=== PATIENT | female | born 1985 | race African-American/Black ===

== ENCOUNTER 2017-09-17 17:40 | Emergency (ER) | payer OTHER ==
[~2017-09-17 17:40] MED LIST: ULTRAM 50MG TAB50 MG PO; ZOFRAN ODT4 MG PO
[2017-09-17] MEDS ORDERED: MUCINEX D ER 11 EACH PO (17:51)
[2017-09-17] MEDS ORDERED: ZOFRAN ODT4 MG PO (17:51)
== END 2017-09-17 18:54 | disposition home or self-care (01) ==
LOC: ER 17:40
DX: J32.9 Chronic sinusitis, unspecified (principal)

== ENCOUNTER 2017-10-15 15:36 | Emergency (ER) | payer OTHER ==
[~2017-10-15] VITALS: Ht 154.9 cm; Wt 56.7 kg
[~2017-10-15 15:36] MED LIST changes: +MUCINEX D ER 11 EACH PO
[2017-10-15 16:12] LABS: URINE BILIRUBIN NEGATIVE (Negative); URINE BLOOD NEGATIVE (Negative); URINE CLARITY CLEAR; URINE COLOR YELLOW; URINE GLUCOSE-RANDOM* NEGATIVE (Negative); URINE KETONES NEGATIVE (Negative); URINE LEUKOCYTES NEGATIVE (Negative); URINE NITRITE NEGATIVE (Negative); URINE PROTEIN (DIPSTICK) NEGATIVE (Negative); URINE SPECIFIC GRAVITY 1.025 (1.005-1.035); URINE UROBILINOGEN 0.2 E.U./dl (0.2-1.0)
[2017-10-15 16:23] LABS: HEMOGLOBIN 9.2 gm/dL (12.0-15.0); RDW 17.5 % (10.5-14.5)
[2017-10-15 16:25] LABS: HEMATOCRIT 29.6 % (37.0-47.0); MCH 21.2 pg (26.0-34.0); MCHC 31.2 g/dL (28.0-37.0); MCV 67.8 fL (80.0-100.0); PLATELET COUNT 198 thou/uL (150-400); RBC 4.36 mil/uL (4.20-5.00)
[2017-10-15 16:31] LABS: CREATININE 0.6 mg/dL (0.6-1.0); POTASSIUM 3.4 mmol/L (3.5-5.1)
[2017-10-15 16:37] LABS: DIRECT BILIRUBIN 0.1 mg/dL (<0.1-0.3); TOTAL BILIRUBIN 0.4 mg/dL (<0.1-1.0)
[2017-10-15 17:05] LABS: MYELOCYTES 2 %
[2017-10-15 17:06] LABS: ANISOCYTOSIS 3+; POLYCHROMASIA SLIGHT
[2017-10-15 17:07] LABS: POIKILOCYTOSIS 1+; SCHISTOCYTES OCCASIONAL
[2017-10-15] MEDS ORDERED: NORCO 5-325 TA1 EACH PO (17:19)
[2017-10-15 17:58] VITALS: BP 106/56
== END 2017-10-15 18:07 | disposition home or self-care (01) ==
LOC: ER 15:36
PROVIDERS: Emergency Medicine
DX: N83.202 Unspecified ovarian cyst, left side (principal)

== ENCOUNTER 2018-09-27 20:08 | Emergency (ER) | payer OTHER ==
[~2018-09-27] VITALS: Ht 154.9 cm; Wt 54.4 kg
[~2018-09-27 20:08] MED LIST changes: +NORCO 5-325 TA1 EACH PO
[2018-09-27] MEDS ORDERED: LEXAPRO 10 MG T10 M2 PO (20:12)
[2018-09-27 20:26] LABS: URINE BILIRUBIN NEGATIVE (Negative); URINE BLOOD NEGATIVE (Negative); URINE CLARITY CLEAR; URINE COLOR YELLOW; URINE GLUCOSE-RANDOM* NEGATIVE (Negative); URINE KETONES NEGATIVE (Negative); URINE NITRITE-REFLEX NEGATIVE (Negative); URINE PROTEIN (DIPSTICK) NEGATIVE (Negative)
[2018-09-27 20:27] LABS: URINE LEUKOCYTES-REFLEX 3+ (Negative)
[2018-09-27 20:35] LABS: BACTERIA-REFLEX >30 Many /HPF (None Seen); CASTS None Seen /LPF (None Seen); CRYSTALS None Seen /LPF (None Seen); SQUAMOUS 4-10 Moderate /LPF (0-3); URINE WBC-REFLEX 0-5 Rare /HPF (0-5)
[2018-09-27 20:36] LABS: URINE RBC None Seen /HPF (0-2)
[2018-09-27] MEDS ORDERED: KEFLEX500 M1 PO (20:38)
[2018-09-27] MEDS ORDERED: PRENATAL VITAM1 EAC1 PO (20:39)
[2018-09-27 21:30] VITALS: BP 114/71
== END 2018-09-27 21:30 | disposition home or self-care (01) ==
LOC: ER 20:08
PROVIDERS: Student in an Organized Health Care Education/Training Program
DX: O23.41 Unspecified infection of urinary tract in pregnancy, first trimester (principal); Z3A.00 Weeks of gestation of pregnancy not specified

== ENCOUNTER 2020-08-14 23:57 | Emergency (ER) | payer OTHER ==
[~2020-08-14] VITALS: Ht 154.9 cm; Wt 64.4 kg
[~2020-08-14 23:57] MED LIST changes: +KEFLEX500 M1 PO; +LEXAPRO 10 MG T10 M2 PO; +PRENATAL VITAM1 EAC1 PO
[2020-08-15 03:14] VITALS: BP 111/73
== END 2020-08-15 03:15 | disposition home or self-care (01) ==
LOC: ER 23:57
DX: R51.9 Headache, unspecified (principal); Z79.899 Other long term (current) drug therapy

== ENCOUNTER 2020-11-25 14:03 | Emergency (ER) | payer OTHER ==
[~2020-11-25] VITALS: Ht 154.9 cm; Wt 64.9 kg
[2020-11-25 14:44] LABS: URINE BILIRUBIN NEGATIVE (Negative); URINE BLOOD 1+ (Negative); URINE CLARITY CLEAR; URINE COLOR YELLOW; URINE GLUCOSE-RANDOM* NEGATIVE (Negative); URINE KETONES TRACE (Negative); URINE LEUKOCYTES-REFLEX NEGATIVE (Negative); URINE NITRITE-REFLEX NEGATIVE (Negative); URINE PROTEIN (DIPSTICK) NEGATIVE (Negative); URINE SPECIFIC GRAVITY 1.025 (1.005-1.035); URINE UROBILINOGEN 0.2 E.U./dl (0.2-1.0)
[2020-11-25 15:09] LABS: BACTERIA-REFLEX None Seen /HPF (None Seen); CASTS None Seen /LPF (None Seen); CRYSTALS None Seen /LPF (None Seen); SQUAMOUS >10 Many /LPF (0-3); URINE RBC 3-10 Few /HPF (NONE SEEN); URINE WBC-REFLEX None Seen /HPF (0-5)
[2020-11-25 15:10] LABS: MUCUS >6 Heavy strn/LPF (None Seen)
[2020-11-25 16:21] VITALS: BP 112/72
== END 2020-11-25 16:21 | disposition home or self-care (01) ==
LOC: ER 14:03
PROVIDERS: Physician Assistant
DX: O20.0 Threatened abortion (principal); Z3A.15 15 weeks gestation of pregnancy

== ENCOUNTER 2021-01-17 21:58 | Emergency (ER) | payer OTHER ==
[~2021-01-17] VITALS: Ht 154.9 cm; Wt 66.2 kg
[2021-01-17] MEDS ORDERED: PROBIOTIC1 EAC7 PO (22:07)
[2021-01-17] MEDS ORDERED: ASA81BEC PO (22:07)
[2021-01-17 22:24] LABS: URINE BILIRUBIN NEGATIVE (Negative); URINE BLOOD NEGATIVE (Negative); URINE CLARITY CLEAR; URINE COLOR YELLOW; URINE GLUCOSE-RANDOM* NEGATIVE (Negative); URINE KETONES NEGATIVE (Negative); URINE LEUKOCYTES-REFLEX NEGATIVE (Negative); URINE NITRITE-REFLEX NEGATIVE (Negative); URINE PROTEIN (DIPSTICK) NEGATIVE (Negative); URINE SPECIFIC GRAVITY 1.015 (1.005-1.035); URINE UROBILINOGEN 0.2 E.U./dl (0.2-1.0)
[2021-01-17] MEDS ORDERED: VITAMIN D325 MC3 PO (22:36)
[2021-01-17 23:07] VITALS: BP 108/77
== END 2021-01-17 23:07 | disposition home or self-care (01) ==
LOC: ER 21:58
PROVIDERS: Student in an Organized Health Care Education/Training Program
DX: O21.9 Vomiting of pregnancy, unspecified (principal); Z3A.22 22 weeks gestation of pregnancy; Z20.822 Contact with and (suspected) exposure to COVID-19; Z79.82 Long term (current) use of aspirin; Z79.899 Other long term (current) drug therapy

== ENCOUNTER 2021-05-10 12:08 | Emergency (ER) | payer OTHER ==
[~2021-05-10] VITALS: Ht 154.9 cm; Wt 69.4 kg
[2021-05-10 12:08] VITALS: BP 106/66
[~2021-05-10 12:08] MED LIST changes: +ASA81BEC PO; +PROBIOTIC1 EAC7 PO; +VITAMIN D325 MC3 PO
== END 2021-05-10 12:40 | disposition short-term general hospital (02) ==
LOC: ER 12:08
DX: O99.413 Diseases of the circulatory system complicating pregnancy, third trimester (principal); O98.513 Other viral diseases complicating pregnancy, third trimester; O26.893 Other specified pregnancy related conditions, third trimester; U07.1 COVID-19; E86.0 Dehydration; Z3A.38 38 weeks gestation of pregnancy; Z98.51 Tubal ligation status; Z79.899 Other long term (current) drug therapy